=== PATIENT | male | born 1985 | race Caucasian/White ===

== ENCOUNTER 2021-04-17 19:16 | Emergency (ER) | payer OTHER ==
[2021-04-17 20:20] VITALS: BP 129/81; PULSE 75
[2021-04-17] MEDS ORDERED: Lidocaine 2% Viscous Solution 15 ML UD PO ONE (22:02)
[2021-04-17] MEDS ORDERED: Lidocaine 2% Viscous Solution 15 ML UD ONE (22:03)
--- NOTE | 2021-04-17 22:22 | EDM.PDOC ---
ED HPI GENERAL MEDICAL PROBLEM - General Chief Complaint: ENT Problem Stated Complaint: BLOODY NOSE Time Seen by Provider: 04/17/21 20:52 - History of Present Illness INITIAL COMMENTS - FREE TEXT/NARRATIVE: HISTORY AND PHYSICAL: History of present illness: This is a 35-year-old gentleman who is currently on chronic anticoagulation therapy secondary to valve repair who presents ER today secondary to epistaxis. Patient reports he has a history for epistaxis in the past. He reports he went to see an ENT doctor for routine visit earlier this afternoon. While at the ENT doctors office he had cauterization of his nose to prevent bleeding. Patient reports that he would not have any active bleeding prior to his visit. Patient reports that when he came home to [place] he started having a significant bout of bleeding out of his left nares that he was unable to control. He reports that this bleeding is worsened his normal epistaxis. Patient reports that his INR was 3.9 today. He was given instructions to decrease his Coumadin dose and reports that they like his INR approximately at the 2.5 range. In the ED, nasal clamp was placed in the patient's bleeding appears to have significantly slowed down. Patient denies any recent fevers, shakes, chills, nausea, vomiting, diarrhea, dysuria, frequency, urgency. Review of systems: As per history of present illness and below otherwise all systems reviewed and negative. Past medical history: As per history of present illness and as reviewed below otherwise noncontributory. Surgical history: As per history of present illness and as reviewed below otherwise n oncontributory. Social history: No reported history of drug abuse. Family history: As per history of present illness and as reviewed below otherwise noncontributory. Physical exam: This patient was seen and evaluated during the 2019 SARS-CoV-2 novel coronavirus pandemic period. Community viral transmission is ongoing at time of this encounter and the emergency department is operating under pandemic response procedures. Constitutional: Patient is oriented to person, place, and time. Appears well- developed and well-nourished. No distress. HEENT: Moist mucous membranes Head: Normocephalic and atraumatic Eyes: Right eye exhibits no discharge. Left eye exhibits no discharge. No scleral icterus Neck: Normal range of motion. No tracheal deviation present. Cardiovascular: Normal rate and regular rhythm. Pulmonary: Effort normal, no respiratory distress. Abdominal: No distention Musculoskeletal: Normal range of motion Neurologic: Alert and oriented to person, place and time. Skin: [place], warm and dry. Psychiatric: Normal mood and affect. Behavior is normal. Judgment and thought content normal. Nursing note and vital signs have been reviewed Patient has no active bleeding out of his left naris. Upon visualization there are some hyperemic vessels over his medial septum on the left side. No active bleeding is noted. Diagnostics: [] Therapeutics: [] Assessment and plan: 35-year-old with epistaxis most likely secondary to anticoagulation with an INR 3.9. Patient currently is being managed with his Coumadin dosing and is to have his dose decreased. This is already in motion and has been instructed to the patient by his primary care physician. In the ED, given that he is anticoagulated and is having persistent bleeding, a 5.5 cm nasal balloon was in serted and inflated. No active bleeding is current at this time. I did discuss with the patient they will need to have removal of the nasal balloon in 3 days. I will hold off placing patient on any antibiotics so that I do not interfere with his anticoagulation therapy while he is adjusting his doses. I have discussed with the patient to return to the ER if he starts developing any signs or symptoms concerning with sinusitis. Reassessment at the time of disposition demonstrates that the patient is in no acute distress. The patient has remained stable throughout the entire ED visit and is without objective evidence for acute process requiring urgent intervention or hospitalization. The patient is stable for discharge, counseling is provided as documented above, discussed symptomatic treatment and specific conditions for return. I have spoken with the patient/caregiver and discussed todays findings, in addition to providing specific details for the plan of care. Questions are ans wered and there is agreement with the plan. Definitive disposition and diagnosis as appropriate pending reevaluation and review of above. - Related Data Allergies Allergy/AdvReac Type Severity Reaction Status Date / Time No Known Allergies Allergy Verified 04/17/21 20:14 Home Meds: Home Meds Aspirin [[place]] 1 mg PO DAILY 04/17/21 [History] Losartan [Cozaar] 25 mg PO DAILY 04/17/21 [History] Warfarin [Coumadin] 5 mg PO DAILY 04/17/21 [History] Past Medical History - Past Health History Medical/Surgical History: Denies Medical/Surgical History - Infectious Disease History Infectious Disease History: Reports: Chicken Pox - Past Surgical History Cardiovascular Surgical History: Reports: Valve Replacement Social & Family History - Tobacco Use Tobacco Use Status *Q: Never Tobacco User - Recreational Drug Use Recreational Drug Use: No ED ROS GENERAL - Review of Systems Review Of Systems: See Below ED EXAM, GENERAL - Physical Exam Exam: See Below Course - Vital Signs Last Recorded V/S: Last Vital Signs Temp 97.5 F 04/17/21 20:15 Pulse 75 04/17/21 20:15 Resp 17 04/17/21 20:15 BP 129/81 04/17/21 20:15 Pulse Ox 96 04/17/21 20:15 - Orders/Labs/Meds Meds: Medications Discontinued Medications Generic Name Dose Route Start Last Admin Trade Name Caesar PRN Reason Stop Dose Admin Lidocaine HCl 15 ml 04/17/21 22:02 04/17/21 22:10 Lidocaine 2% Viscous Solution 15 Ml Ud PO 04/17/21 22:03 15 ml ONETIME ONE Administration Lidocaine HCl Confirm 04/17/21 22:03 04/17/21 22:07 Lidocaine 2% Viscous Solution 15 Ml Ud Administered 04/17/21 22:04 Not Given Dose 15 ml .ROUTE .STK-MED ONE Departure - Departure Time of Disposition: 22:20 Disposition: Home, Self-Care 01 Condition: Good Clinical Impression: Epistaxis, Anticoagulation excessive - Discharge Information Instructions: Nosebleed, Adult Referrals: Srinivasa Tuttle MD [Primary Care Provider] - Additional Instructions: You were seen and evaluated in ER today secondary to excessive bleeding from your nose. Given that you are currently over anticoagulated, a nasal balloon has been inserted to help with bleeding. This needs to be removed in 3 days. Please return to the ER if you are having any excessive bleeding or any new or concerning symptoms. You may follow-up with your ENT doctor for them to remove it in 3 days or if you are unable to get an appoint with your primary care physician or ENT doctor you can always come back to the ED and we can assist you. The following information is given to patients seen in the emergency department who are being discharged to home. This information is to outline your options for follow-up care. We provide all patients seen in our emergency department with a follow-up referral. The need for follow-up, as well as the timing and circumstances, are variable depending upon the specifics of your emergency department visit. If you don't have a primary care physician on staff, we will provide you with a referral. We always advise you to contact your personal physician following an emergency department visit to inform them of the circumstance of the visit and for follow-up with them and/or the need for any referrals to a consulting specialist. The emergency department will also refer you to a specialist when appropriate. This referral assures that you have the opportunity for follow-up care with a specialist. All of these measure are taken in an effort to provide you with optimal care, which includes your follow-up. Under all circumstances we always encourage you to contact your private physician who remains a resource for coordinating your care. When calling for follow-up care, please make the office aware that this follow-up is from your recent emergency room visit. If for any reason you are refused follow-up, please contact the [facility] Emergency Department at and asked to speak to the emergency department charge nurse. [facility] [address] [place] [id number] [address] [address] Sepsis Event Note (ED) - Evaluation Sepsis Screening Result: No Definite Risk - Focused Exam Vital Signs: Vital Signs Temp Pulse Resp BP Pulse Ox 04/17/21 20:15 97.5 F 75 17 129/81 96
== END 2021-04-17 22:39 | disposition home or self-care (01) ==
LOC: MW.ED 19:16
DX: R04.0 Epistaxis (principal); Z79.01 Long term (current) use of anticoagulants
CPT/HCPCS: 30903; 99283; A9270

== ENCOUNTER 2023-07-28 12:58 | Emergency (ER) | payer OTHER ==
[2023-07-28] MEDS: Sodium Chloride 0.9% 1,000 ML IV STA (13:39)
[2023-07-28] MEDS: Ondansetron 4 MG/2 ML SDV IVPUSH ONE (13:40)
[2023-07-28] MEDS: Morphine 4 MG/ML Syringe IVPUSH ONE ×2 (13:40→15:03)
[2023-07-28 13:54] LABS: BASOPHILS ABSOLUTE AUTO 0.03 K/uL (0.00-0.20); BASOPHILS PERCENT AUTO 0.3 % (0.0-1.0); EOSINOPHILS ABSOLUTE AUTO 0.05 K/uL (0.00-0.45); EOSINOPHILS PERCENT AUTO 0.5 % (0.0-6.0); HEMATOCRIT 35.6 % (42.0-52.0); HEMOGLOBIN 12.3 g/dL (14.0-18.0); IMMATURE GRAN ABSOLUTE AUTO 0.09 K/uL (0.00-0.05); IMMATURE GRAN PERCENT AUTO 0.9 % (0.0-0.4); LYMPHOCYTES ABSOLUTE AUTO 1.32 K/uL (1.00-4.80); LYMPHOCYTES PERCENT AUTO 13.9 % (24.0-44.0); MEAN CORPUSCULAR HEMOGLOBIN 30.1 pg (28.0-32.0); MEAN CORPUSCULAR HGB CONC 34.6 g/dL (32.0-36.0); MEAN PLATELET VOLUME 9.6 fL (9.4-12.4); MONOCYTES ABSOLUTE AUTO 1.29 K/uL (0.00-0.80); MONOCYTES PERCENT AUTO 13.6 % (0.0-8.0); NEUTROPHILS PERCENT AUTO 70.8 % (41.0-71.0); PLATELET COUNT,PLT 201 K/uL (150-400); RED BLOOD CELL COUNT 4.09 M/uL (4.52-5.90); WHITE BLOOD CELL COUNT,WBC 9.48 K/uL (3.9-11.3)
[2023-07-28] MEDS: Lidocaine 1% PF 2 ML SDV INJECT ONE (13:55)
[2023-07-28] MEDS: Acetaminophen 500 MG Tab PO ONE (13:55)
[2023-07-28 14:24] LABS: ALBUMIN 3.8 g/dL (3.4-5.0); BILIRUBIN TOTAL 1.1 mg/dL (0.2-1.0); CALCIUM 9.1 mg/dL (8.5-10.1); CARBON DIOXIDE,CO2 27.9 mmol/L (21.0-32.0); CREATININE 0.9 mg/dL (0.8-1.3); EST CRCL DRUG DOSING (CG) 105.56 mL/min; POTASSIUM,K 4.1 mmol/L (3.5-5.1); PROTEIN TOTAL,TP 7.7 g/dL (6.4-8.2)
[2023-07-28 14:27] LABS: LACTIC ACID 1.2 mmol/L (0.4-2.0)
[2023-07-28 16:07] VITALS: BP 140/80; PULSE 115
== END 2023-07-28 15:05 | disposition home or self-care (01) ==
LOC: MERGE 12:58 → MW.ED 12:58
DX: S81.012A Laceration without foreign body, left knee, initial encounter (principal); Z79.82 Long term (current) use of aspirin; Z79.899 Other long term (current) drug therapy; Z75.8 Other problems related to medical facilities and other health care; X58.XXXA Exposure to other specified factors, initial encounter
CPT/HCPCS: 12001; 36415; 80053; 83605; 83690; 85025; 87040; 96361; 96374; 96375; 96376; 99283; A9270; J2270; J2405; J7030; 99284; J3490

== ENCOUNTER 2023-08-08 11:03 | Emergency (ER) | payer OTHER ==
[2023-08-08] MEDS: Sodium Chloride 0.9% 1,000 ML IV ONE ×2 (11:18→14:34)
[2023-08-08 11:23] LABS: BASOPHILS ABSOLUTE AUTO 0.05 K/uL (0.00-0.20); BASOPHILS PERCENT AUTO 0.8 % (0.0-1.0); EOSINOPHILS ABSOLUTE AUTO 0.22 K/uL (0.00-0.45); EOSINOPHILS PERCENT AUTO 3.4 % (0.0-6.0); HEMATOCRIT 35.1 % (42.0-52.0); HEMOGLOBIN 11.7 g/dL (14.0-18.0); IMMATURE GRAN ABSOLUTE AUTO 0.15 K/uL (0.00-0.05); IMMATURE GRAN PERCENT AUTO 2.3 % (0.0-0.4); LYMPHOCYTES ABSOLUTE AUTO 2.06 K/uL (1.00-4.80); LYMPHOCYTES PERCENT AUTO 31.8 % (24.0-44.0); MEAN CORPUSCULAR HEMOGLOBIN 28.6 pg (28.0-32.0); MEAN CORPUSCULAR HGB CONC 33.3 g/dL (32.0-36.0); MEAN CORPUSCULAR VOLUME 85.8 fL (83.0-99.0); MEAN PLATELET VOLUME 8.7 fL (9.4-12.4); MONOCYTES ABSOLUTE AUTO 0.78 K/uL (0.00-0.80); NEUTROPHILS ABSOLUTE AUTO 3.22 K/uL (1.80-7.70); NEUTROPHILS PERCENT AUTO 49.7 % (41.0-71.0); PLATELET COUNT,PLT 508 K/uL (150-400); RED BLOOD CELL COUNT 4.09 M/uL (4.52-5.90); WHITE BLOOD CELL COUNT,WBC 6.48 K/uL (3.9-11.3)
[2023-08-08 11:38] LABS: INR 1.34 (0.86-1.11); PTT,PARTIAL THROMBOPLSTIN TIME 36.6 SEC (23.9-30.7)
[2023-08-08 11:57] LABS: A/G RATIO 0.8 (0.9-1.6); ALBUMIN 3.7 g/dL (3.4-5.0); BILIRUBIN TOTAL 0.9 mg/dL (0.2-1.0); CALCIUM 9.4 mg/dL (8.5-10.1); POTASSIUM,K 3.6 mmol/L (3.5-5.1); PROTEIN TOTAL,TP 8.3 g/dL (6.4-8.2); TSH ULTRASENSITIVE 2.9 uIU/mL (0.36-3.74)
[2023-08-08 12:23] LABS: APPEARANCE,URINE CLEAR; BILIRUBIN,URINE NEGATIVE (NEGATIVE); COLOR,URINE YELLOW; GLUCOSE,URINE NEGATIVE (NEGATIVE); KETONES,URINE NEGATIVE (NEGATIVE); LEUKOCYTE ESTERASE,URINE NEGATIVE (NEGATIVE); NITRITE,URINE NEGATIVE (NEGATIVE); OCCULT BLOOD,URINE NEGATIVE (NEGATIVE); PROTEIN,URINE NEGATIVE (NEGATIVE); UROBILINOGEN,URINE 0.2 EU/dL (<2.0)
[2023-08-08] MEDS: Iopamidol 755 MG/ML 500 ML Multipack Bottle IVPUSH STA (12:28)
[2023-08-08 13:19] LABS: AMPHETAMINES SCREEN, URINE NEGATIVE (CUTOFF=500); BARBITURATE SCREEN,URINE NEGATIVE (CUTOFF=200); BENZODIAZEPINES SCREEN,URINE NEGATIVE (CUTOFF=150); BUPRENORPHINE SCREEN,URINE NEGATIVE (CUTOFF=10); METHADONE SCREEN, URINE NEGATIVE (CUTOFF=200); METHAMPHETAMINES SCREEN, URINE NEGATIVE (CUTOFF=500); OXYCODONE SCREEN,URINE PRESUMPTIVE POSITIVE (CUT0FF=100); PCP SCREEN,URINE NEGATIVE (CUTOFF=25); THC SCREEN,URINE 20 NG/ML NEGATIVE (CUTOFF=50)
[2023-08-08 14:03] LABS: BASOPHILS ABSOLUTE AUTO 0.05 K/uL (0.00-0.20); BASOPHILS PERCENT AUTO 0.7 % (0.0-1.0); EOSINOPHILS ABSOLUTE AUTO 0.17 K/uL (0.00-0.45); EOSINOPHILS PERCENT AUTO 2.5 % (0.0-6.0); HEMATOCRIT 34.6 % (42.0-52.0); HEMOGLOBIN 11.5 g/dL (14.0-18.0); IMMATURE GRAN ABSOLUTE AUTO 0.08 K/uL (0.00-0.05); IMMATURE GRAN PERCENT AUTO 1.2 % (0.0-0.4); LYMPHOCYTES ABSOLUTE AUTO 1.66 K/uL (1.00-4.80); LYMPHOCYTES PERCENT AUTO 24.4 % (24.0-44.0); MEAN CORPUSCULAR HEMOGLOBIN 28.9 pg (28.0-32.0); MEAN CORPUSCULAR HGB CONC 33.2 g/dL (32.0-36.0); MEAN CORPUSCULAR VOLUME 86.9 fL (83.0-99.0); MEAN PLATELET VOLUME 8.7 fL (9.4-12.4); MONOCYTES ABSOLUTE AUTO 0.46 K/uL (0.00-0.80); MONOCYTES PERCENT AUTO 6.8 % (0.0-8.0); NEUTROPHILS ABSOLUTE AUTO 4.37 K/uL (1.80-7.70); NEUTROPHILS PERCENT AUTO 64.4 % (41.0-71.0); PLATELET COUNT,PLT 460 K/uL (150-400); RED BLOOD CELL COUNT 3.98 M/uL (4.52-5.90); WHITE BLOOD CELL COUNT,WBC 6.79 K/uL (3.9-11.3)
[2023-08-08 16:22] VITALS: BP 128/80; PULSE 121
== END 2023-08-08 18:30 ==
LOC: MW.ED 11:03
DX: R00.0 Tachycardia, unspecified (principal); Z75.8 Other problems related to medical facilities and other health care; Z79.82 Long term (current) use of aspirin; Z79.01 Long term (current) use of anticoagulants; Z79.899 Other long term (current) drug therapy; Z86.19 Personal history of other infectious and parasitic diseases
CPT/HCPCS: 36415; 71275; 80053; 80305; 81003; 83735; 83880; 84443; 84484; 85025; 85610; 85730; 93005; 96360; 96361; 99285; J7030; Q9967